=== PATIENT | female | born 1980 | race Caucasian/White ===

== ENCOUNTER 2024-10-05 10:10 | Emergency (ER) | payer OTHER, SELFPAY ==
[2024-10-05 10:18] VITALS: BP 134/71; PULSE 87; RESP 16; TEMP 36.5; O2SAT 96
--- NOTE | 2024-10-05 10:19 | ED.URI ---
HPI - URI/Sore Throat General Chief Complaint: Upper Respiratory Infection Stated Complaint: ears/cough/throat Time Seen by Provider: 10/05/24 10:28 Source: patient and RN notes reviewed Mode of arrival: ambulatory Limitations: no limitations History of Present Illness HPI Narrative: 44-year-old female presents with concern for cough, sore throat, ear pain. She reports right ear pain for about a week. She reports her doctor told her it was just allergies. She takes allergy medicine daily. She has not been taking any other [id number] medications for her symptoms. She reports fever, body aches, chills, sweats. MD elicited complaint: sore throat and other (Right ear pain) Related Data Home Medications Medication Instructions Recorded Confirmed albuterol sulfate 90 mcg/actuation 90 mcg inhalation DIRECTED PRN 10/05/24 10/05/24 aerosol inhaler Shortness Of Breath Or Wheezing atogepant 30 mg tablet (Qulipta) 30 mg DIRECTED 10/05/24 10/05/24 atorvastatin 20 mg tablet 20 mg DIRECTED 10/05/24 10/05/24 azelastine 137 mcg (0.1 %) nasal 137 mcg intranasal DIRECTED 10/05/24 10/05/24 spray cetirizine 10 mg tablet 10 mg DIRECTED 10/05/24 10/05/24 dulaglutide 0.75 mg/0.5 mL 0.75 mg subcut DIRECTED 10/05/24 10/05/24 subcutaneous pen injector (Trulicity) fluoxetine 60 mg tablet 60 mg DIRECTED 10/05/24 10/05/24 fluticasone propionate 110 110 mcg inhalation DIRECTED 10/05/24 10/05/24 mcg/actuation HFA aerosol inhaler metformin 500 mg tablet,extended 500 mg PO DIRECTED 10/05/24 10/05/24 release 24 hr montelukast 10 mg tablet 10 mg DIRECTED 10/05/24 10/05/24 propranolol 60 mg tablet 60 mg DIRECTED 10/05/24 10/05/24 rizatriptan 10 mg tablet 10 mg DIRECTED 10/05/24 10/05/24 Allergies Allergy/AdvReac Type Severity Reaction Status Date / Time No Known Allergies Allergy Verified 10/05/24 10:33 Review of Systems Review of Systems: CONSTITUTIONAL: Reports malaise, chills, sweats, or fever. EYES: Denies visual changes, redness, or discharge. ENT: Reports rhinorrhea, congestion, otalgia and sore throat. CARDIOVASCULAR: Denies chest pain, palpitations, or edema. RESPIRATORY: Reports cough. Denies dyspnea. GASTROINTESTINAL: Denies abdominal pain, nausea, vomiting, diarrhea SKIN: Denies rash or itching. MUSCULOSKELETAL: Reports myalgia. NEUROLOGIC: Denies headache. All systems reviewed & are unremarkable except as noted in HPI and below PMFSH Comments At time of signature, agree with nursing past medical, surgical, social and family history. There is no relevant family history pertinent to the presenting complaint Exam Narrative: GENERAL: Nontoxic-appearing, well-nourished, and in no acute distress. HEAD: Normocephalic EYES: PERRLA, conjunctivae clear ENT: Nares clear. Mucous membranes moist. TM pearly clark with dull light reflex bilaterally; no tragal tenderness. Oropharynx not erythematous without lesions. Tonsils not enlarged and without exudate, no drooling, no hoarseness, no trismus, uvula midline. NECK: Supple. No lymphadenopathy CHEST: Clear to auscultation, breath sounds equal. No wheezing, rhonchi, rales, or stridor. No respiratory distress, speaks in full sentences. Cough noted HEART: Regular rate and rhythm. No murmur heard. SKIN: Warm, dry, no rash. NEURO: Alert and oriented x3. PSYCH: Normal mood and affect Course Course Emergency Course: Patient is aware of diagnosis, understands and agrees to treatment plan. Anticipatory guidance given. Patient agrees to follow-up as directed and is aware of reasons to seek care at the emergency department. Portions of this record may have been created with voice recognition software Level of Care: Express Care Visit Vital Signs Vital signs: Reviewed. MDM - URI/Sore Throat MDM Narrative Medical decision making narrative: Differential diagnosis considered: Vaughn virus, strep pharyngitis, allergic rhinitis, upper respiratory tract infection, sinusitis, rhinosinusitis, nasopharyngitis. viral pharyngitis, otitis media, otitis externa, pneumonia, bronchitis, viral cough syndrome, viral syndrome, and influenza. Exam findings show no acute concerns or changes; patient is non-toxic appearing and is in no distress. Patient is appropriate for outpatient treatment and follow-up. Lab Data Attestation: I reviewed the patient's lab results. Critical Care Time Critical Care Time Critical Care Time: No Discharge Plan Discharge Clinical Impression: Upper respiratory infection Patient Disposition: Home, Self-Care Condition: Stable Instructions: Upper Respiratory Infection (ED) Additional Instructions: Your rapid strep swab was negative today at [facility]. A throat culture will be sent to the laboratory for further testing. If the test is positive, you will receive a phone call within 48 hours and an appropriate antibiotic will be initiated at that time. Your symptoms are likely due to a viral illness, which is not treated with antibiotics. Viral symptoms can be present for up to a few weeks. -Alternate Tylenol and Motrin per package directions for fever or pain. -Antihistamine medication such as Benadryl at night and Zyrtec during the day can help improve symptoms. -Eat and drink things that are easy to swallow, like tea or soup, or popsicles to suck on. -Oral rinses such as: Salt water gargles and/or may use topical anesthetic (eg. Chloraseptic spray) or lozenges to relieve dryness or throat pain). -Frequent hand washing or hand soldering machine operator helper is one of the best ways to prevent spread of infection. -Follow up with primary care provider in 2-3 days if condition is not improving; or seek ER visit if you have trouble breathing, cannot drink enough fluids, have muffled voice, difficulty opening your mouth, or severe swelling. Prescriptions: New prednisone 20 mg tablet 40 mg PO DAILY 5 Days Qty: 10 0RF fluticasone propionate [Flonase Allergy Relief] 50 mcg/actuation spray,suspension 2 spray NASAL DAILY 14 Days Qty: 15.8 0RF Rx Instructions: administer into each nostril No Action atorvastatin 20 mg tablet 20 mg DIRECTED cetirizine 10 mg tablet 10 mg DIRECTED rizatriptan 10 mg tablet 10 mg DIRECTED propranolol 60 mg tablet 60 mg DIRECTED montelukast 10 mg tablet 10 mg DIRECTED azelastine 137 mcg (0.1 %) spray,non-aerosol 137 mcg INTRANASAL DIRECTED albuterol sulfate 90 mcg/actuation HFA aerosol inhaler 90 mcg INHALATION DIRECTED PRN (Reason: Shortness Of Breath Or Wheezing) metformin 500 mg tablet extended release 24 hr 500 mg PO DIRECTED fluticasone propionate 110 mcg/actuation HFA aerosol inhaler 110 mcg INHALATION DIRECTED fluoxetine 60 mg tablet 60 mg DIRECTED Trulicity 0.75 mg/0.5 mL pen injector 0.75 mg SUBCUT DIRECTED Qulipta 30 mg tablet 30 mg DIRECTED Follow-up/Referrals: PHYSICIAN NOT ON STAFF,NONSTAFF [Primary Care Provider] - Stand Alone Forms: Work/School Release IP Time of Disposition: 10:58
[2024-10-05 10:58] LABS: EDSTREPNEGPOS1 Negative (Negative)
== END 2024-10-05 11:02 | disposition home or self-care (01) ==
PROVIDERS: Emergency Provider Nurse Practitioner
DX: J06.9 Acute upper respiratory infection, unspecified (principal)
CPT/HCPCS: 87081; 87880; 99213; G0463